=== PATIENT | male | born 1985 | race Caucasian/White ===

== ENCOUNTER 2019-03-15 06:42 | Outpatient (CLI) | payer BC ==
[2019-03-15 07:09] LABS: #Basophils 0.1 thou/uL (0.0-0.2); #Eosinphils 0.1 thou/uL (0.0-0.7); #Lymphocytes 2.7 thou/uL (1.20-3.40); #Monocytes 0.4 thou/uL (0.11-0.59); #Neutrophils 3.5 thou/uL (1.40-6.50); %Basophils 1.3 % (0.0-1.0); %Eosinophils 1.5 % (0.0-10.0); %Lymphocytes 39.5 % (21.0-51.0); %Monocytes 6.3 % (0.0-10.0); %Neutrophils 51.4 % (42.0-75.0); Hemoglobin 15.5 g/dL (14.0-18.0); Mean Corpuscular HGB CONC 34.1 g/dL (32.0-36.0); Mean Corpuscular Hemoglobin 31.2 pg (27.0-31.0); Mean Corpuscular Volume 91.5 fL (78.0-98.0); Platelet Count 267 thou/uL (130-400); RBC Distribution Width 11.5 % (11.5-14.5); Red Blood Cell (RBC) Count 4.98 mill/uL (4.70-6.10); White Blood Cell (WBC) Count 6.8 thou/uL (4.8-10.8)
[2019-03-15 07:23] LABS: ALT (SGPT) 28 U/L (8-55); AST (SGOT) 16 U/L (5-34); Albumin 4.3 g/dL (3.5-5.0); Alkaline Phosphatase 72 U/L (40-150); Anion Gap 17 mmol/L (10-20); BUN (Urea Nitrogen) 16 mg/dL (8.9-20.6); Bilirubin, Total 0.6 mg/dL (0.2-1.2); Calc. Creatinine Clearance 0 mL/min (70-130); Carbon Dioxide 25 mmol/L (22-29); Chloride 102 mmol/L (98-107); Cholesterol 244 mg/dl (< 200 Desired); Estimated GFR-MDRD 86; Glucose 97 mg/dL (70-105); HDL Cholesterol 41 mg/dL (>60 Neg Risk); LDL Cholesterol, Calculated 168 mg/dL; Potassium 3.9 mmol/L (3.5-5.1); Protein, Total 7.3 g/dL (6.0-8.3); Sodium 140 mmol/L (136-145)
[2019-03-15 07:36] LABS: Bilirubin Negative (Negative); Blood, Urine Trace (Negative); Clarity Clear (Clear); Glucose, Urine (Dipstick) Negative (Negative); Leukocyte Negative (Negative); Nitrite Negative (Negative); Protein, Urine (Dipstick) Negative (Neg-Trace); Specific Gravity, Urine 1.015 (1.005-1.030); Urobilinogen 0.2 mg/dL (0.2-1.0)
[2019-03-15 07:58] LABS: RBC/HPF 0-3 HPF (0-3); Squamous Epithelial 0-3 HPF (0-3); WBC/HPF 0-3 HPF (0-3)
[2019-03-15 07:59] LABS: Bacteria/HPF Rare-Few HPF (None Seen)
[2019-03-15 08:05] LABS: Triglycerides 175 mg/dL (Less than 150)
== END 2019-03-15 06:43 | disposition home or self-care (01) ==
LOC: SCSLAB 06:42
PROVIDERS: ATTEND Family Medicine
DX: Z00.00 Encounter for general adult medical examination without abnormal findings (principal)
CPT/HCPCS: 36415; 80053; 80061; 81001; 85025

== ENCOUNTER 2020-02-02 09:25 | Outpatient (CLI) | payer BC ==
[2020-02-02] MEDS ORDERED: Iopamidol-370 76% 500 ML 1 ML ONE (15:26)
--- NOTE | 2020-02-07 13:25 | CT ---
CT CORONARY CALCIUM SCORE WITHOUT IV CONTRAST CT CORONARY ARTERIOGRAM WITH IV CONTRAST AND 3D POSTPROCESSING: HISTORY: 34-year-old male with abnormal stress test, strong family history of coronary artery disease. FINDINGS: The coronary artery calcium scoring was performed using the AJ-130 method: Left Main: 0 RCA: 0 LAD: 0 LCX: 32 Total: 32 There was a small focal area of calcified plaque in the wall of the proximal left circumflex artery w ithout significant stenosis. Luminal narrowing is less than 30%. No other calcified plaques are seen in the remainder of the coronary arterial vascular system. The left main, LAD, and RCA demonstrate no rmal flow and no stenosis or calcified plaque. Left ventricular function measurements are as follows: LVEF: 57% EDV: 159 mL ESV: 69 mL Stroke Volume: 90 mL/minute Cardiac Output: 4.1 L/minute Myocardial Mass: 147 gm The left ventricular wall motion is normal. The visualized lung [place] are clear. No pleural or peric ardial effusions are identified. There are mild degenerative changes in the spine. IMPRESSION: 1. Total CAC is 32. 2. Minimal stenosis due to calcified plaque in the proximal LCX. POS: [facility]
== END 2020-02-02 09:26 | disposition home or self-care (01) ==
LOC: BICCT 09:25
PROVIDERS: ATTEND Internal Medicine Cardiovascular Disease
DX: R94.39 Abnormal result of other cardiovascular function study (principal); I25.10 Atherosclerotic heart disease of native coronary artery without angina pectoris
CPT/HCPCS: 75574; Q9967

== ENCOUNTER 2025-08-10 09:05 | Outpatient (CLI) | payer BC | END 2025-08-10 09:06 | disposition home or self-care (01) | LOC: MRI 09:05 | PROVIDERS: ATTEND Family Medicine | DX: M23.203 Derangement of unspecified medial meniscus due to old tear or injury, right knee (principal); M17.11 Unilateral primary osteoarthritis, right knee; M25.761 Osteophyte, right knee; M24.19 Other articular cartilage disorders, other specified site ==